=== PATIENT | female | born 1960 | race Caucasian/White ===

== ENCOUNTER → 2017-09-02 | Outpatient (CLI) | payer OTHER | LOC: M.RAD 09:50 | DX: Z12.31 Encounter for screening mammogram for malignant neoplasm of breast (principal) ==

== ENCOUNTER → 2018-09-12 | Outpatient (CLI) | payer OTHER | LOC: M.RAD 12:58 | DX: Z12.31 Encounter for screening mammogram for malignant neoplasm of breast (principal) ==

== ENCOUNTER → 2020-02-26 | Outpatient (CLI) | payer OTHER | LOC: M.RAD 11:00 | PROVIDERS: ATTEND Family Medicine | DX: Z12.31 Encounter for screening mammogram for malignant neoplasm of breast (principal) ==

== ENCOUNTER → 2021-01-08 | Outpatient (CLI) | payer OTHER ==
[~2021-01-08] MED LIST: ALKA-SELTZER H1 EACH PO; GAS RELIEF80 MG PO; LINZESS72 MCG PO; MIRALAX119 GM PO; OMEPRAZOLE40 MG PO; TUMS200 MG PO
== END ==
LOC: M.LAB 11:11
PROVIDERS: ATTEND Surgery
DX: Z20.822 Contact with and (suspected) exposure to COVID-19 (principal)

== ENCOUNTER 2021-01-09 06:01 | Observation (INO) | payer OTHER ==
[~2021-01-09] VITALS: Ht 170.2 cm; Wt 55.8 kg
--- NOTE | ~2021-01-09 | H ---
[address] [address] HISTORY AND PHYSICAL Name: DIMITRIDAMARISSRINI MICHEL Room: [address] [place] Barr#: [id number] Admission: 01/09/21 Attend Phys: Maynor Monte MD Discharge: 01/10/21 Date of : 64 Report #: [id number] THIS REPORT FOR: cc: Virgilio Fitch John E. DO [facility],Medical Records Staff ~ Please refer to the History and Physical performed in the physician's office. By: [id number] Records Staff LUPIS /MADHAVI
--- NOTE | ~2021-01-09 | OP ---
[address] [address] OPERATIVE REPORT Name: DAMARIS MOSLEY Room: [address] [place] Barr#: [id number] Admission: 01/09/21 Attend Phys: Maynor Monte MD Discharge: 01/10/21 Date of : 64 Report #: [id number] THIS REPORT FOR: cc: Virgilio Fitch John E. DO Joseph, Sigi P. MD ~ cc: Virgilio Fitch DO DATE OF SURGERY: 01/09/2021 PREOPERATIVE DIAGNOSES: 1. Refractory reflux. 2. Hiatal hernia. POSTOPERATIVE DIAGNOSIS: 1. Refractory reflux. 2. Hiatal hernia. OPERATIVE PROCEDURES DONE: 1. Laparoscopic repair of hiatal hernia. 2. Partial fundoplication. SURGEON: Maynor Monte MD INDICATIONS FOR THE PROCEDURE: The patient is a 60-year-old female who presented with complaints of severe refractory reflux symptoms. The patient was also noted to have a 5 cm hiatal hernia. The patient was advised laparoscopic repair of a hiatal hernia with partial fundoplication. The patient has had Akhtar study that showed features of significant reflux. Manometry showed a few incomplete peristalsis in the esophagus. PROCEDURE IN DETAIL: After explaining to the patient in detail and informed consent was obtained, the patient was identified in the preoperative holding area. The patient was transferred to the operating room and was placed in supine position. Sequential compression devices were placed for DVT prophylaxis. No preoperative antibiotics were given. After induction of anesthesia, the abdomen was prepped and draped in a sterile fashion. Through a left upper quadrant 1 cm incision and using Optiview technique, peritoneal cavity was entered and pneumoperitoneum was created. Thereafter, under direct vision, another 5 mm trocar was placed in the left mid abdomen, another 12 mm trocar was placed in the right mid abdomen. Another 5 mm trocar was placed in the right subcostal region and through a 1 cm incision in the epigastrium, a Felix retractor was introduced and the left lobe of the liver was retracted. On initial inspection, the patient was noted to have a 5 cm hiatal hernia. The gastrohepatic omentum was divided and the [place] [address] OPERATIVE REPORT Name: DAMARIS MOSLEY Room: [address] [place] Barr#: [id number] Admission: 01/09/21 Attend Phys: Maynor Monte MD Discharge: 01/10/21 Date of : 64 Report #: [id number] hernial sac was gently dissected off the right crura initially using hook electrocautery and then using the Enseal device. I continued dissection anteriorly and then along the left mike. I continued to dissect the sac superiorly. The patient's hernial defect measured approximately about 1 x 5 cm. I then continued with the posterior dissection to facilitate the posterior dissection. I took down the short gastric vessels, so the gastrophrenic ligament was divided. I continued to mobilize the distal esophagus as much as possible to have adequate length within the abdomen. The hernial sac was then dissected off. I then did a posterior cruroplasty with a uvadkm-oh-gnins Ethibond sutures. I then brought the fundus of the stomach to the right side and a shoeshine maneuver was performed. Three interrupted gastroesophageal sutures were placed using 2-0 Ethibond suture and EndoStitch device on both sides to create a 360-degree wrap. Prior to this, I had performed a cruroplasty with a [id number] Ethibond suture posteriorly and placed a second suture anteriorly. Care was taken not to tighten the crura too much. Once the fundoplication was completed, I then pexied the wrap on the left and the right crura using two interrupted 2-0 Ethibond suture. Absolute hemostasis was ensured. Approximately about 10 mL of lidocaine, Marcaine mix was instilled into the left hemidiaphragm. The 12 mm port site incision was closed with 0 Vicryl for the fascia. Skin was closed with 4-0 Monocryl for all the incisions. Dermabond was applied. The patient was stable at the end of the procedure. The patient was awoken from anesthesia and was transferred to the recovery room in stable condition. ESTIMATED BLOOD LOSS: Minimal. CONDITION: The patient is stable. FLUIDS: Given per Anesthesia notes. SPECIMEN SENT: None. COMPLICATIONS: None. ANESTHESIA: General anesthesia. By: [id number] Monte MD /kev
[2021-01-09 14:45] VITALS: BP 118/72
[2021-01-09 16:00] VITALS: BP 115/63
--- NOTE | 2021-01-09 19:00 | NUR ---
PT BROUGHT UP TO FLOOR AT 1445. PT ORIENTED TO HER ROOM AND STAFF. PT UP WITH ASSISTANCE TO BATHROOM WITH STEADY GAIT. PT STATED SHE GOT a little dizzy when she first STOOD UP, BUT THEN IT PASSED. PT HAS SALINE LOCK IN HER LEFT WRIST WITH IV FLUIDS INFUSING WITHOUT DIFFICULTY. PT HAVING SOME GAS PAINS IN HER ABD. WILL CONTINUE TO MONITOR PLAN OF CARE. PT WAS BOARDED DOWN IN PACU FOR THE LAST 2 DAYS.
[2021-01-09 20:30] VITALS: BP 104/58
[2021-01-10 05:55] VITALS: BP 127/79
[2021-01-10 08:18] VITALS: BP 116/61
[2021-01-10 10:55] VITALS: BP 116/61
[2021-01-10 11:03] VITALS: BP 116/61
[2021-01-10 11:52] VITALS: BP 116/61
--- NOTE | 2021-01-10 11:52 | NUR ---
PATIENT A&OX4, PLEASANT AND COOPERATIVE WITH CARES. PATIENT GIVEN DISCHARGE INSTRUCTIONS, 2 PRESCRIPTIONS (ALONG WITH INFORMATION SHEETS FOR BOTH) WELL DIETARY INFORMATION FOR FULL LIQUID AND SOFT DIETS. PATIENT DENIES PAIN PRIOR TO DISCHARGE. PATIENT STATES SHE WILL CALL SURGEON FOR FOLLOW UP APPT. IV REMOVED. PATIENT LEFT UNIT WITH PERSONAL BELONGINGS VIA W/C, ACCOMPANIED BY AND NURSING STAFF AT APPROX. 1145.
== END 2021-01-10 11:45 | disposition home or self-care (01) ==
LOC: M.TBA 06:01 → M.PRE 06:03 → M.TBA-ER 13:29 → M.2W 15:09
PROVIDERS: ADMIT Surgery; ATTEND Surgery
DX: K21.9 Gastro-esophageal reflux disease without esophagitis (principal); K44.9 Diaphragmatic hernia without obstruction or gangrene; Z20.822 Contact with and (suspected) exposure to COVID-19; Z79.899 Other long term (current) drug therapy

== ENCOUNTER → 2021-05-26 | Outpatient (CLI) | payer OTHER | LOC: M.RAD 14:32 | PROVIDERS: ATTEND Family Medicine | DX: Z12.31 Encounter for screening mammogram for malignant neoplasm of breast (principal); N63.10 Unspecified lump in the right breast, unspecified quadrant ==

== ENCOUNTER → 2021-05-29 | Outpatient (CLI) | payer OTHER | LOC: M.ULTRA 13:14 | PROVIDERS: ATTEND Family Medicine | DX: N60.01 Solitary cyst of right breast (principal) ==